=== PATIENT | male | born 1960 | race Hispanic/Latino ===

== ENCOUNTER 2016-12-17 10:35 | Emergency (ER) | payer MEDICAID, OTHER ==
[2016-12-17 11:12] VITALS: BP 120/68; PULSE 96; RESP 20; TEMP 98.1; O2SAT 99
--- NOTE | 2016-12-17 12:36 | ED PDOC ---
Lower Extremity Pain/Injury Time Seen by Provider: 12/17/16 12:00 Chief Complaint (Nursing): Lower Extremity Problem/Injury Chief Complaint (Provider): Lower Extremity Problem/Injury History Per: Patient History/Exam Limitations: no limitations Onset/Duration Of Symptoms: Days (a few days prior to arrival) Additional Complaint(s): Wang Morel, 56 year old male presents to the ED on 12/17/16 for bilateral leg swelling and erythema occurring for a few days prior to arrival. The patient also reports pain in his left lower extremity. He states he has been feeling slight shortness of breath as he walks a lot throughout the day. Of note, the patient smokes 2-3 cigarettes per day. Past Medical History Reviewed: Historical Data, Nursing Documentation, Vital Signs Vital Signs: Last Vital Signs Temp 98.1 F 12/17/16 11:11 Pulse 96 H 12/17/16 11:11 Resp 20 12/17/16 11:11 BP 120/68 12/17/16 11:11 Pulse Ox 99 12/17/16 11:11 - Medical History PMH: No Chronic Diseases - Surgical History Surgical History: No Surg Hx - Family History Family History: States: Unknown Family Hx - Social History Current smoker - smoking cessation education provided: Yes (2-3 cigarettes/day x1 month) - Allergies Allergies/Adverse Reactions: Allergies Allergy/AdvReac Type Severity Reaction Status Date / Time No Known Allergies Allergy Verified 12/17/16 12:33 Review of Systems ROS Statement: Except As Marked, All Systems Reviewed And Found Negative Musculoskeletal: Positive for: Leg Pain (bilateral leg swelling and erythema; left lower extremity pain ) Physical Exam - Reviewed Nursing Documentation Reviewed: Yes Vital Signs Reviewed: Yes - Physical Exam Appears: Positive for: Non-toxic, No Acute Distress Head Exam: Positive for: ATRAUMATIC, NORMOCEPHALIC Extremity: Positive for: Pedal Edema (bilateral lower extremity edema 1+), Other (bilateral stasis ulcerations; DP pulses 1+ bilaterally) Neurologic/Psych: Positive for: Alert, Oriented (x3) - ECG O2 Sat by Pulse Oximetry: 99 (RA) Pulse Ox Interpretation: Normal Medical Decision Making Medical Decision Making: Initial Impression: Bilateral leg swelling Initial Plan: * [US] Duplex Lower Extrm Vein Bilat Stat US: Negative for DVT bilaterally Scribe Attestation: Documented by Maru Gerard, acting as a scribe for Daniela Pearson PA-C. Provider Scribe Attestation: All medical record entries made by the Scribe were at my direction and personally dictated by me. I have reviewed the chart and agree that the record accurately reflects my personal performance of the history, physical exam, medical decision making, and the department course for this patient. I have also personally directed, reviewed, and agree with the discharge instructions and disposition. Disposition - Clinical Impression Clinical Impression: Leg swelling - Patient ED Disposition Is Patient to be Admitted: No - Disposition Disposition: Routine/Home Disposition Time: 12:00 Condition: STABLE Instructions: Leg Edema (ED) - POA Present On Arrival: None
--- NOTE | 2016-12-17 14:14 | US ---
PROCEDURE: Bilateral lower extremity venous duplex Doppler. HISTORY: swelling r/o DVT COMPARISON: None available. TECHNIQUE: Bilateral common femoral, superficial femoral, popliteal and posterior tibial veins were evaluated. Flow was assessed with color Doppler, compressibility, assessment of phasic flow and augmentation response. FINDINGS: COMMON FEMORAL VEIN: Right CFV: Normal color-flow and compressibility. Left CFV: Normal color-flow and compressibility. SUPERFICIAL FEMORAL VEIN: Right SFV: Normal color-flow and compressibility. Left SFV: Normal color-flow and compressibility. POPLITEAL VEIN: Right Popliteal: Normal color-flow and compressibility. Left Popliteal: Normal color-flow and compressibility. POSTERIOR TIBIAL VEIN: Right PTV: Normal color-flow and compressibility. Left PTV: Normal color-flow and compressibility. OTHER FINDINGS: None. IMPRESSION: No evidence of deep venous thrombosis.
== END 2016-12-17 15:06 | disposition home or self-care (01) ==
LOC: H.ER 10:35
DX: R60.0 Localized edema (principal)